=== PATIENT | female | born 1995 | race American Indian/Alaskan Native ===

== ENCOUNTER 2021-12-16 10:50 | Emergency (ER) | payer SELFPAY ==
[2021-12-16 11:12] VITALS: BP 118/80
[2021-12-16 12:43] LABS: Bacteria,Urine 1+ /HPF (Negative); Bilirubin,Urine NEG (Negative); Blood,Urine NEG (Negative); Color,Urine Yellow (Yellow); Mucus,Urine 2+ /HPF
[2021-12-16 12:53] LABS: HCG Qualitative,Urine Negative (Negative)
== END 2021-12-16 19:00 | disposition left against medical advice (07) ==
LOC: ED 10:50
DX: R11.10 Vomiting, unspecified (principal); Z53.21 Procedure and treatment not carried out due to patient leaving prior to being seen by health care provider
CPT/HCPCS: 81001; 81025; 87086

== ENCOUNTER 2022-03-08 22:09 | Emergency (ER) | payer BC ==
[2022-03-08 22:22] VITALS: BP 110/70
[2022-03-08] MEDS ORDERED: ONDANSETRON 4 MG ODT TAB PO ONE (22:23)
[2022-03-08 22:50] LABS: Basophils % (Auto) 0.4 % (0.0-1.8); Eosinophils % (Auto) 0.2 % (0.0-4.3); Hematocrit 27.7 % (30.3-42.9); Hemoglobin 8.9 gm/dl (10.1-14.3); Mean Corpuscular HGB Conc 32 % (30-34); Mean Corpuscular Volume 76 fl (79-97); Monocytes # (Auto) 0.4 K/mm3 (0.0-0.8); Monocytes % (Auto) 4.1 % (0.0-7.3); Platelet Count 280 K/mm3 (140-440); Red Blood Count 3.66 M/mm3 (3.65-5.03); Red Cell Distribution Width 18.1 % (13.2-15.2)
[2022-03-08 23:07] LABS: Alanine Aminotransferase 11 units/L (7-56); Albumin 4.3 g/dL (3.9-5); Blood Urea Nitrogen 10 mg/dL (7-17); Hemolysis Index 6
[2022-03-08 23:14] LABS: BUN/Creatinine Ratio 17
[2022-03-09] MEDS ORDERED: HYOSCYAMINE SUBL 0.125 MG TAB SL ONE (01:53)
[2022-03-09] MEDS ORDERED: diphenhydrAMINE 50 MG/ML VIAL IV ONE (01:53)
[2022-03-09] MEDS ORDERED: METOCLOPRAMIDE 10 MG/2 ML INJ IV ONE (01:53)
--- NOTE | 2022-03-09 02:05 | Emergency Department Report ---
ED Abdominal Pain HPI - General Chief Complaint: Nausea/Vomiting/Diarrhea Stated Complaint: CHEST/STOMACH PAIN Time Seen by Provider: 03/09/22 01:51 Source: patient Mode of arrival: Ambulatory Limitations: No Limitations - History of Present Illness MD Complaint: abdominal pain -: Sudden Location: diffuse Radiation: none Migration to: no migration Quality: aching Consistency: constant Worsens With: eating Context: possible food poisoning Associated Symptoms: nausea, vomiting, diarrhea, other (Burning discomfort to the chest with excessive vomiting). denies: constipation, melena, hematuria, anorexia - Related Data Home Medications Medication Instructions Recorded Confirmed Last Taken traMADol 50 mg PO Q4-6H PRN 11/06/15 11/06/15 11/06/15 Previous Rx's Medication Instructions Recorded Last Taken Type DOXYCYCLINE Hyclate [Vibramycin 100 mg PO Q12HR #28 capsule 11/07/15 Unknown Rx CAP] Ibuprofen [Motrin] 600 mg PO Q6H PRN #24 tablet 11/07/15 Unknown Rx Hyoscyamine Subl [Levsin Sl 0.125 0.125 mg SL Q6HR PRN #20 tab 03/09/22 Unknown Rx TAB] Ondansetron [Zofran ODT TAB] 8 mg PO Q12HR #14 tab.rapdis 03/09/22 Unknown Rx Allergies Allergy/AdvReac Type Severity Reaction Status Date / Time aspirin Allergy Unknown Verified 03/08/22 22:22 ED Review of Systems ROS: Stated complaint: CHEST/STOMACH PAIN Other details as noted in HPI Comment: All other systems reviewed and negative ED Past Medical Hx - Surgical History Additional Surgical History: breast masses removed 2011,2012 - Social History Smoking Status: Never Smoker Substance Use Type: None - Medications Home Medications: Home Medications Medication Instructions Recorded Confirmed Last Taken Type traMADol 50 mg PO Q4-6H PRN 11/06/15 11/06/15 11/06/15 History DOXYCYCLINE Hyclate [Vibramycin 100 mg PO Q12HR #28 capsule 11/07/15 Unknown Rx CAP] Ibuprofen [Motrin] 600 mg PO Q6H PRN #24 tablet 11/07/15 Unknown Rx Hyoscyamine Subl [Levsin Sl 0.125 0.125 mg SL Q6HR PRN #20 tab 03/09/22 Unknown Rx TAB] Ondansetron [Zofran ODT TAB] 8 mg PO Q12HR #14 tab.rapdis 03/09/22 Unknown Rx ED Physical Exam - General Limitations: No Limitations General appearance: alert, in no apparent distress - Head Head exam: Present: atraumatic, normocephalic - Eye Eye exam: Present: normal appearance, PERRL, EOMI Pupils: Present: normal accommodation - ENT ENT exam: Present: normal exam, normal orophraynx, mucous membranes moist, TM's normal bilaterally - Neck Neck exam: Present: normal inspection, full ROM - Respiratory Respiratory exam: Present: normal lung sounds bilaterally. Absent: respiratory distress, wheezes, rales, rhonchi, chest wall tenderness, accessory muscle use - Cardiovascular Cardiovascular Exam: Present: regular rate, normal rhythm. Absent: systolic murmur, diastolic murmur, rubs, gallop - GI/Abdominal GI/Abdominal exam: Present: soft, tenderness (Vague tenderness to the abdomen abdomen is soft no guarding), normal bowel sounds - Extremities Exam Extremities exam: Present: normal inspection - Back Exam Back exam: Present: normal inspection - Neurological Exam Neurological exam: Present: alert, oriented X3 - Psychiatric Psychiatric exam: Present: normal affect, normal mood - Skin Skin exam: Present: warm, dry, intact, normal color. Absent: rash ED Course Vital Signs 03/08/22 22:21 Temperature 98.0 F Pulse Rate 86 Respiratory 18 Rate Blood Pressure 110/70 O2 Sat by Pulse 99 Oximetry - Reevaluation(s) Reevaluation #1: 03/09/22 07:03 Patient is resting comfortably no acute distress tolerating orals reports that her symptoms are significantly improved since the onset with utilization of the medication. Plan is to discharge home ED Medical Decision Making - Lab Data Result diagrams: 03/08/22 22:39 03/08/22 22:39 - Medical Decision Making Patient presents to the emergency department with nausea, vomiting, diarrhea, differential diagnosis includes possible acute gastroenteritis. Abdominal examination without peritoneal signs. Currently patient is euvolemic without evidence of dehydration. No evidence of surgical abdomen or other acute medical emergency including bowel obstruction, viscus perforation, vascular catastrophe, appendicitis, cholecystitis at this time. Presentation not consistent with other acute emergent causes of vomiting and diarrhea at this time. No indication for abdominal imaging Plan supportive care, oral/IV rehydration, antiemetics and reassess Critical care attestation.: If time is entered above; I have spent that time in minutes in the direct care of this critically ill patient, excluding procedure time. ED Disposition Clinical Impression: Abdominal pain, Vomiting and diarrhea Disposition: 01 HOME / SELF CARE / HOMELESS Is pt being admited?: No Does the pt Need Aspirin: No Condition: Stable Instructions: Food Choices to Help Relieve Diarrhea, Adult, Rotavirus Infection, Adult, Nausea and Vomiting, Adult, [id number], Nausea and Vomiting, Adult, Preventing Gastrointestinal Problems During Exercise Prescriptions: Hyoscyamine Subl [Levsin Sl 0.125 TAB] 0.125 mg SL Q6HR PRN #20 tab PRN Reason: abdominal cramps and spasms Ondansetron [Zofran ODT TAB] 8 mg PO Q12HR #14 tab.vikas Referrals: [facility] [Provider Group] - 3-5 Days [facility] [Provider Group] - 3-5 Days
[2022-03-09 05:19] LABS: Color,Urine Yellow (Yellow)
[2022-03-09 05:21] LABS: Mucus,Urine FEW /HPF
[2022-03-09 05:46] LABS: RBC,Urine < 1.0 /HPF (0.0-6.0); WBC,Urine < 1.0 /HPF (0.0-6.0)
--- NOTE | 2022-03-10 21:48 | Electrocardiograph Report ---
[facility] Test Date: 2022-03-08 Test Time: 22:26:30 Pat Name: CADEN ALMONTE Department: Room: Gender: F [employer] Operator: MIKE : 1995 Requested By: CHRISTIAN HOLLOWAY Order Number: [id number] Reading MD: Queta Johnson Measurements Intervals [place] Rate: 61 P: 29 AL: 144 QRS: 69 QRSD: 109 T: 68 QT: 477 QTc: 480 Interpretive Statements Sinus rhythm No previous ECG available for comparison Electronically Signed On 03-10-2022 21:47:50 EDT by Queta Johnson
== END 2022-03-09 07:30 | disposition home or self-care (01) ==
LOC: ED 22:09
DX: R10.9 Unspecified abdominal pain (principal); R11.2 Nausea with vomiting, unspecified; R19.7 Diarrhea, unspecified; Z88.6 Allergy status to analgesic agent
CPT/HCPCS: 36415; 80053; 81001; 83690; 84703; 85025; 93005; 96374; 96375; 99283; J1200; J2765; J3490; Q0162